=== PATIENT | female | born 1950 | race Caucasian/White ===

== ENCOUNTER 2020-03-08 07:55 | Outpatient (CLI) | payer MEDICARE, SELFPAY ==
--- NOTE | 2020-03-08 08:04 | MM_ITS ---
WS: [id number] BILATERAL SCREENING DIGITAL MAMMOGRAM WITH CAD HISTORY: SCREENING COMPARISON: and 02/03/2018 Bilateral CC and MLO views submitted. Computer aided detection analyzed. Breast composition: There are scattered areas of fibroglandular density. No suspicious masses, microc alcifications or architectural distortion. Benign lymph nodes in the lateral aspect of each breast. MM/[place] [id number] IMPRESSION: BI-RADS: 2-Benign FOLLOW UP: 1 Year Follow-up
== END 2020-03-08 07:56 | disposition home or self-care (01) ==
LOC: RADSHAW 07:59
PROVIDERS: PCP Family Medicine; Visit Provider Family Medicine
DX: Z12.31 Encounter for screening mammogram for malignant neoplasm of breast (principal)
CPT/HCPCS: 77067

== ENCOUNTER 2020-05-09 08:20 | Outpatient (CLI) | payer MEDICARE, SELFPAY ==
--- NOTE | 2020-05-09 08:37 | CT_ITS ---
WS: [id number] CT CHEST TECHNIQUE: Noncontrast CT of the chest with coronal and sagittal reformatted images. CLINICAL INFORMATION: PULMONARY NODULES COMPARISON: and DLP: 865.[address] scans at [facility] use at least one of these dose optimization techniques: automat ed exposure control; mA and/or kV adjustment per patient size (includes targeted exams where dose is matched to clinical indication); or iterative reconstruction. FINDINGS: Moderate chronic emphysematous changes. Again seen are multiple noncalcified subcentimeter pulmonary nodules largest in the left lower lobe subpleural in location measuring 6.3 mm unchanged. Additional subcentimeter nodules in both lungs appears stable. Small subpleural pulmonary nodule right middle lo be measuring 3.5 mm is unchanged. Hazy groundglass nodules in the right upper lobe suprahilar in loca tion are stable. Calcified granulomas. Adrenal glands are normal. Normal GE junction. Normal visualiz ed thoracic spine. No mediastinal or hilar lymphadenopathy. No axillary lymphadenopathy. Vascular calcification. CT/CT chest wo con [id number] IMPRESSION: 1. Multiple noncalcified subcentimeter pulmonary nodules unchanged since . Recommend 12 month follow-up. 2. No mediastinal or hilar lymphadenopathy. 3. Vascular calcification including coronary.
== END 2020-05-09 08:21 | disposition home or self-care (01) ==
LOC: RADWPI 08:25
PROVIDERS: PCP Family Medicine; Visit Provider Family Medicine
DX: R91.8 Other nonspecific abnormal finding of lung field (principal); I25.10 Atherosclerotic heart disease of native coronary artery without angina pectoris
CPT/HCPCS: 71250

== ENCOUNTER 2020-06-27 08:07 | Outpatient (CLI) | payer MEDICARE, SELFPAY ==
--- NOTE | 2020-06-27 08:15 | XR_ITS ---
WS: [id number] Exam: XR KUB [id number] Date/Time of Exam: 06/27/2020 8:21 AM Reason For Exam: stones Comparison 06/28/2019. No calcifications identified superimposing the kidneys. No bowel obstruction or free air. Nonspecific pelvic calcifications are noted which may be phleboliths. Large circular calcification noted near th e left iliac crest unchanged in appearance. XR/XR KUB [id number] IMPRESSION: 1. No calcifications superimposing the renal silhouettes. 2. No acute finding in the abdomen or pelvis.
== END 2020-06-27 08:08 | disposition home or self-care (01) ==
LOC: RAD 08:13
PROVIDERS: PCP Family Medicine; Visit Provider Urology
DX: N20.1 Calculus of ureter (principal)
CPT/HCPCS: 74018; 81003

== ENCOUNTER 2020-12-25 09:42 | Outpatient (CLI) | payer MEDICARE, SELFPAY ==
--- NOTE | 2020-12-25 10:15 | CT_ITS ---
WS: [id number] CT CHEST WITHOUT INTRAVENOUS CONTRAST HISTORY: LUNG NODULE TECHNIQUE: Contiguous 5 mm axial imaging performed on the thorax. Coronal and sagittal reformats are submitted. All CT scans at [facility] use at least one of these dose optimization techniq ues: automated exposure control; mA and/or kV adjustment per patient size (includes targeted exams wh ere dose is matched to clinical indication); or iterative reconstruction. CONTRAST: None DLP: 327.63 mGy-cm. COMPARISON: 05/09/2020 and 04/22/2019 Lungs and central airway: Mild chronic emphysematous changes. Multiple bilateral subcentimeter pulmon henry nodules are again identified. The largest nodule measuring 6 mm at the LEFT lung base. There are additional nodules which are less than 6 mm scattered throughout the lungs. There are no new or enlar ging nodules. Benign granuloma also noted. Mild groundglass attenuation in the periphery LEFT lower l obe. Probably due to pneumonitis. Pleura: Normal. No pleural effusion. Heart and pericardium: Mild enlargement the heart. No pericardial effusion. Mediastinum and mehdi: Benign calcified lymph nodes at the hilum. Vessels: Mild atherosclerosis aorta and ectasia. No aneurysm. Pulmonary artery size is very minimally prominent. Chest wall and lower neck: No soft tissue masses. Upper abdomen: Suprarenal abdominal aortic calcification. No adrenal mass. Osseous structures: No destructive process. CT/CT chest wo con [id number] IMPRESSION: 1. Subcentimeter bilateral pulmonary nodules have been stable for 2 years. No additional workup is necessary of these nodules. 2. Prior granulomatous disease. 3. Atherosclerosis aorta.
== END 2020-12-25 09:43 | disposition home or self-care (01) ==
LOC: RADWPI 09:45
PROVIDERS: PCP Nurse Practitioner; Visit Provider Family Medicine
DX: R91.1 Solitary pulmonary nodule (principal); I70.0 Atherosclerosis of aorta; R91.8 Other nonspecific abnormal finding of lung field
CPT/HCPCS: 71250

== ENCOUNTER 2021-03-13 14:45 | Outpatient (CLI) | payer MEDICARE, SELFPAY ==
--- NOTE | 2021-03-13 14:55 | MM_ITS ---
WS: [id number] BILATERAL SCREENING DIGITAL MAMMOGRAM WITH CAD HISTORY: SCREENING COMPARISON: 02/28/2016 and 03/08/2020 Bilateral CC and MLO views submitted. Computer aided detection analyzed. Breast composition: There are scattered areas of fibroglandular density. No suspicious masses, microc alcifications or architectural distortion. Stable LEFT breast nodule and bilateral calcifications. MM/[place] [id number] IMPRESSION: BI-RADS: 2-Benign FOLLOW UP: 1 Year Follow-up
--- NOTE | 2021-03-13 15:48 | XR_ITS ---
WS: [id number] Bone mineral density performed on a [place], today Clinical data: POST MENOPAUSAL Comparison study: DEXA scan, 11/26/2016. Findings: The first 4 lumbar vertebral bodies demonstrated the bone mineral density of 1.134 g/cm2 for a young adult T score of -0.4. Measurement of the left hip reveals a bone mineral density of 0.854 g/cm2 with a young adult T score of -1.2. Measurement of the right hip reveals the bone mineral density of 0.860 g/cm2 for young adult T score of -1.2. XR/XR DEXA axial skeleton* [id number] Impression: 1. The bone mineral density of the lumbar spine is normal. 2. The bone mineral density of the hips shows osteopenia. 3. The bone mineral density of the lumbar spine and right hip have diminished c ompared to the prior study. 4. The bone mineral density of the left hip has increased slightly compared to the prior study.
== END 2021-03-13 14:46 | disposition home or self-care (01) ==
LOC: RADSHAW 14:52
PROVIDERS: PCP Nurse Practitioner; Visit Provider Family Medicine
DX: Z12.31 Encounter for screening mammogram for malignant neoplasm of breast (principal); Z78.0 Asymptomatic menopausal state
CPT/HCPCS: 77067; 77080

== ENCOUNTER 2021-09-03 12:43 | Outpatient (CLI) | payer MEDICARE, SELFPAY ==
--- NOTE | 2021-09-03 12:54 | XR_ITS ---
WS: [id number] KUB, AP view, 09/03/2021 Clinical Data: UROLITHIASIS Comparison: KUB, 06/27/2020. Findings: No abnormal intraabdominal masses or calcifications are seen. There is no dilatated small bowel or ev idence of obstruction. XR/XR KUB [id number] Impression: Negative KUB.
== END 2021-09-03 12:44 | disposition home or self-care (01) ==
LOC: RAD 12:51
PROVIDERS: PCP Nurse Practitioner; Visit Provider Urology
DX: N20.9 Urinary calculus, unspecified (principal)
CPT/HCPCS: 74018; 81003

== ENCOUNTER → 2021-12-26 13:50 | Outpatient (BNVA) | payer MEDICARE, SELFPAY | PROVIDERS: PCP Physician Assistant; Referring Provider Nurse Practitioner; Visit Provider Specialist | DX: M17.11 Unilateral primary osteoarthritis, right knee (principal) | CPT/HCPCS: 20610; 73560; 73565; 99203; J1100; J2795; J3301 ==

== ENCOUNTER 2022-03-15 09:27 | Outpatient (CLI) | payer MEDICARE, SELFPAY ==
--- NOTE | 2022-03-15 09:39 | MM_ITS ---
WS: [id number] BILATERAL SCREENING DIGITAL BREAST TOMOSYNTHESIS MAMMOGRAM WITH CAD HISTORY: SCREENING COMPARISON: 03/13/2021, 03/08/2020 Bilateral CC and MLO views with tomosynthesis and synthetic mammography submitted. Computer aided det ection analyzed. Breast composition: There are scattered areas of fibroglandular density. No suspicious masses, microc alcifications or architectural distortion. Stable upper outer quadrant masses which are probably intr amammary lymph nodes. Vascular calcifications in each breast. MM/[place] [id number] IMPRESSION: BI-RADS: 2-Benign FOLLOW UP: 1 Year Follow-up
== END 2022-03-15 09:28 | disposition home or self-care (01) ==
LOC: RAD 09:28
PROVIDERS: PCP Physician Assistant; Visit Provider Physician Assistant
DX: Z12.31 Encounter for screening mammogram for malignant neoplasm of breast (principal)
CPT/HCPCS: 77063; 77067

== ENCOUNTER → 2022-12-16 09:08 | Outpatient (BNVA) | payer MEDICARE, SELFPAY | PROVIDERS: PCP Physician Assistant; Referring Provider Dermatology; Visit Provider Specialist | DX: M70.61 Trochanteric bursitis, right hip (principal); M76.01 Gluteal tendinitis, right hip | CPT/HCPCS: 20610; 73502; 99213; J1100; J2795; J3301 ==

== ENCOUNTER → 2023-02-27 13:40 | Outpatient (BNVA) | payer MEDICARE, SELFPAY | PROVIDERS: PCP Physician Assistant; Visit Provider Nurse Practitioner Family | DX: L57.0 Actinic keratosis (principal); L57.8 Other skin changes due to chronic exposure to nonionizing radiation; L71.8 Other rosacea; L81.4 Other melanin hyperpigmentation; D22.5 Melanocytic nevi of trunk; L85.3 Xerosis cutis | CPT/HCPCS: 17000; 17003; 99214 ==

== ENCOUNTER 2023-03-27 07:53 | Outpatient (CLI) | payer MEDICARE, SELFPAY ==
--- NOTE | 2023-03-27 08:10 | MM_ITS ---
WS: [id number] BILATERAL SCREENING DIGITAL TOMOSYNTHESIS MAMMOGRAM WITH CAD HISTORY: SCREENING COMPARISON: 03/15/2022, 03/13/2021, 03/08/2020 Bilateral CC and MLO views with tomosynthesis and synthetic mammography submitted. Computer aided det ection analyzed. Breast composition: There are scattered areas of fibroglandular density. No suspicious masses, microc alcifications or architectural distortion. Benign calcifications in each breast. Long-term stability 5 mm mass in the upper outer quadrant left breast. IMPRESSION: MM/[place] [id number] BI-RADS: 2-Benign FOLLOW UP: 1 Year Follow-up
== END 2023-03-27 07:54 | disposition home or self-care (01) ==
LOC: RAD 07:57
PROVIDERS: PCP Physician Assistant; Visit Provider Physician Assistant
DX: Z12.31 Encounter for screening mammogram for malignant neoplasm of breast (principal)
CPT/HCPCS: 77063; 77067

== ENCOUNTER → 2023-09-29 10:34 | Outpatient (BNVA) | payer MEDICARE, SELFPAY | PROVIDERS: PCP Physician Assistant; Visit Provider Specialist | DX: M17.11 Unilateral primary osteoarthritis, right knee (principal); Z71.89 Other specified counseling | CPT/HCPCS: 20610; 73560; 73565; 99213; J1100; J2795; J3301 ==

== ENCOUNTER → 2023-12-01 15:04 | Outpatient (BNVA) | payer MEDICARE, SELFPAY | PROVIDERS: PCP Physician Assistant; Visit Provider Nurse Practitioner Family | DX: L82.0 Inflamed seborrheic keratosis (principal); L91.8 Other hypertrophic disorders of the skin; D48.5 Neoplasm of uncertain behavior of skin; L71.8 Other rosacea | CPT/HCPCS: 11102; 11200; 17110; 99214 ==

== ENCOUNTER → 2024-01-26 10:01 | Outpatient (BNVA) | payer MEDICARE, SELFPAY | PROVIDERS: PCP Physician Assistant; Visit Provider Specialist | DX: M19.011 Primary osteoarthritis, right shoulder | CPT/HCPCS: 20610; 73030; 99214; J1100; J2795; J3301 ==

== ENCOUNTER → 2024-02-25 08:32 | Outpatient (BNVA) | payer MEDICARE, SELFPAY | PROVIDERS: PCP Physician Assistant; Visit Provider Nurse Practitioner Family | DX: L82.1 Other seborrheic keratosis (principal); I78.8 Other diseases of capillaries; L57.8 Other skin changes due to chronic exposure to nonionizing radiation; L81.4 Other melanin hyperpigmentation; D22.5 Melanocytic nevi of trunk | CPT/HCPCS: 99213 ==

== ENCOUNTER 2024-04-08 09:51 | Outpatient (CLI) | payer MEDICARE, SELFPAY ==
--- NOTE | 2024-04-08 | MM_ITS ---
WS: [id number] BILATERAL SCREENING DIGITAL TOMOSYNTHESIS MAMMOGRAM WITH CAD HISTORY: SCREENING COMPARISON: 03/27/2023, 03/15/2022, 03/08/2020 Bilateral CC and MLO views with tomosynthesis and synthetic mammography submitted. Computer aided det ection analyzed. Breast composition: There are scattered areas of fibroglandular density. No suspicious masses, microc alcifications or architectural distortion. There are a few scattered vascular and round punctate calc ifications within each breast. Bilateral stable nodules are probably lymph nodes. MM/[place] [id number] IMPRESSION: BI-RADS: 2-Benign FOLLOW UP: 1 Year Follow-up
== END 2024-04-08 09:52 | disposition home or self-care (01) ==
LOC: RAD 09:52
PROVIDERS: PCP Physician Assistant; Visit Provider Physician Assistant
DX: Z12.31 Encounter for screening mammogram for malignant neoplasm of breast (principal); R92.323 Mammographic fibroglandular density, bilateral breasts; R92.1 Mammographic calcification found on diagnostic imaging of breast
CPT/HCPCS: 77063; 77067

== ENCOUNTER → 2024-06-18 07:48 | Outpatient (BNVA) | payer MEDICARE, SELFPAY | PROVIDERS: PCP Physician Assistant; Visit Provider Specialist | DX: M17.11 Unilateral primary osteoarthritis, right knee (principal); Z71.89 Other specified counseling; R03.0 Elevated blood-pressure reading, without diagnosis of hypertension | CPT/HCPCS: 20610; J1100; J2795; J3301 ==

== ENCOUNTER → 2024-10-04 11:26 | Outpatient (BNVA) | payer MEDICARE, SELFPAY | PROVIDERS: PCP Physician Assistant; Visit Provider Nurse Practitioner Family | DX: L71.8 Other rosacea (principal); D22.39 Melanocytic nevi of other parts of face; I78.8 Other diseases of capillaries; L57.8 Other skin changes due to chronic exposure to nonionizing radiation | CPT/HCPCS: 99214 ==

== ENCOUNTER 2024-11-18 12:46 | Emergency (ER) | payer MEDICARE, SELFPAY ==
[2024-11-18 12:47] VITALS: BP 168/85; PULSE 66; RESP 17; TEMP 37.1; O2SAT 98; BMI 27.4
--- NOTE | 2024-11-18 12:52 | ECG_ITS ---
[employer] Test Date: 2024-11-18 Pat Name: Erica Costa Department: Room: Gender: Female Academic Dean: : 1950 Requested By: Eric Herrera Order Number: [id number] Reading MD: Minnie York M.D. Measurements Intervals [place] Rate: 72 P: 55 DC: 175 QRS: -51 QRSD: 107 T: 6 QT: 415 QTc: 456 Interpretive Statements SINUS RHYTHM LEFT AXIS DEVIATION [QRS AXIS < -30] LOW QRS VOLTAGE IN PRECORDIAL LEADS [QRS DEFLECTION < 1.0 mV IN CHEST LEADS] POSSIBLE ANTERIOR MYOCARDIAL INFARCTION , OF INDETERMINATE AGE [30 ms Q WAVE IN V3/V4, OR R < 0.2 mV IN V4] MODERATE T-WAVE ABNORMALITY, CONSIDER LATERAL ISCHEMIA [-0.1+ mV T-WAVE IN I/aVL/V5/V6] No previous ECG available for comparison Electronically Signed On 11-20-2024 13:10:57 CDT by Minnie York M.D. [email or web address]
--- NOTE | 2024-11-18 12:59 | XR_ITS ---
WS: [id number] Exam: XR chest 1V portable [id number] Date/Time of Exam: 11/18/2024 12:59 PM Reason For Exam: Chest pain No priors. Lungs are fully inflated and clear. Unremarkable cardiomediastinal silhouette. No pleural effusions. Unremarkable bony structures. XR/XR chest 1V portable [id number] IMPRESSION: 1. Negative chest.
[2024-11-18] MEDS: aspirin 81 mg Chew Tablet 324 MG PO (13:12)
--- NOTE | 2024-11-18 13:15 | W.ED.CHESTPA ---
HPI - Chest Pain General: Chief Complaint: Chest Pain Stated Complaint: CP Time Seen by Provider: 11/18/24 12:58 History of Present Illness: 74-year-old female presents emergency room complaint of left-sided chest pain radiating to her left shoulder began last night while she was at rest. She had been drinking some wine. Got significant enough that she ended up going to bed seem to wax and wane a little bit this morning and is still bothering her no associated shortness of breath. No history of coronary disease no other recent episodes. Patient does not smoke is not diabetic does have a history of hyperlipidemia. No previous cardiac testing. Nothing exacerbates or relieves symptoms. Associated symptoms: Deny abdominal pain, dyspnea or fever(s) Related Data Home Medications ?Medication ?Instructions ?Recorded ?Confirmed aspirin 81 mg tablet,delayed 81 mg PO DAILY 06/13/20 11/18/24 release (Adult Aspirin Regimen) atorvastatin 40 mg tablet 40 mg PO QAM 06/13/20 11/18/24 cranberry extract 200 mg capsule 200 mg PO QPM 06/13/20 11/18/24 ibuprofen 200 mg capsule 200 mg PO Q6H PRN Pain 06/13/20 11/18/24 turmeric 400 mg capsule 400 mg PO BEDTIME 06/13/20 11/18/24 multivitamin 1 tab PO QPM 06/27/20 11/18/24 multivitamin with minerals 1 tab PO QPM 06/27/20 11/18/24 (Hair,Skin and Nails tablet) ascorbate calcium (vitamin C) 500 1 g PO QAM 09/03/21 11/18/24 mg tablet cetirizine 10 mg tablet (Zyrtec) 10 mg PO DAILY PRN allergies 06/18/24 11/18/24 epinephrine 0.3 mg/0.3 mL See Rx Instructions .Route .COMPLEX 11/18/24 11/18/24 injection, auto-injector escitalopram oxalate 5 mg tablet 5 mg PO QAM 11/18/24 11/18/24 ropinirole 2 mg tablet 2 mg PO BEDTIME 11/18/24 11/18/24 tizanidine 2 mg tablet 2 mg PO BID PRN back spasms 11/18/24 11/18/24 trazodone 300 mg tablet 300 mg PO BEDTIME 11/18/24 11/18/24 Previous Rx's ?Medication ?Instructions ?Recorded pantoprazole 40 mg tablet,delayed 40 mg PO DAILY #30 tabs 11/18/24 release Allergies Allergy/AdvReac Type Severity Reaction Status Date / Time No Known Allergies Allergy Verified 06/18/24 08:16 Review of Systems Const: Denies: fever(s) or chills Card: Reports: chest pain Resp: Denies: dyspnea GI: Denies: abdominal pain : Denies: dysuria, urinary frequency or urinary urgency Musc: Denies: neck pain or back pain Skin/Breast: Denies: rash PFSH ED PFSH: Medical History Dysuria Anxiety and depression Gross hematuria Urolithiasis Right distal ureteral calculus Recurrent UTI Hyperlipidemia Surgical History Status post bilateral foot surgery Status post placement of ureteral stent Status post laser lithotripsy of ureteral calculus Family History Father , AT AGE 45 LUNG CANCER No problems noted. Mother , AT AGE 88-LYMPHOMA No problems noted. Social History Smoking and tobacco/nicotine status: never used tobacco/nicotine Alcohol intake: current Alcohol intake frequency: 0-2 Drinks per Day Marital status: / Current occupational status: retired Physical Exam Const: COMMON NORMALS: no acute distress GENERAL APPEARANCE: cooperative ORIENTATION/CONSCIOUSNESS: Yes awake, Yes oriented to person, Yes oriented to place and Yes oriented to time HENMT: COMMON NORMALS: normocephalic and hearing grossly normal bilaterally HEAD & SCALP: normocephalic Resp: COMMON NORMALS: normal respiratory effort, No retractions, No use of accessory muscles and clear to auscultation bilaterally AUSCULTATION: clear to auscultation bilaterally Cardio: COMMON NORMALS: regular rate, regular rhythm and No murmurs present (Cardio) RATE: regular rate RHYTHM: regular rhythm GI: COMMON NORMALS: Soft to palpation and No hepatosplenomegaly present AUSCULTATION: Yes normoactive bowel sounds PALPATION: Yes Soft to palpation, No Tenderness to palpation present (GI), No Guarding due to palpation present (GI) and Yes No hepatosplenomegaly present Extremity: COMMON NORMALS: normal to inspection, capillary refill normal, no clubbing, cyanosis or edema, no calf tenderness and no pedal edema Neuro: SENSORIUM/ORIENTATION: Yes oriented to person, Yes oriented to place and Yes oriented to time Skin: COMMON NORMALS: no rashes or lesions noted GENERAL SKIN EXAM: no rashes or lesions noted Procedures Laceration Laceration 1: Size (cm): 2.5 Number of sutures: 2 Course Vital Signs: Vital signs: Vital Signs Temperature 98.7 F 11/18/24 12:47 Pulse Rate 67 11/18/24 16:38 Respiratory Rate 17 11/18/24 12:47 Blood Pressure 109/90 11/18/24 16:38 Pulse Oximetry 100 11/18/24 16:38 Oxygen Delivery Me thod Room Air 11/18/24 12:47 MDM - Chest Pain Medical Decision Making Cardiac enzymes and EKG did not show any acute changes symptoms not suggestive of acute coronary syndrome she not having any chest comfort now. Liver enzymes are mildly elevated gallbladder ultrasound was negative for acute cholecystitis or cholelithiasis. Will discharge patient home continue take baby aspirin daily. Blood pressure slightly elevated and she first arrived but then normalized. Will set her up for an outpatient Lexiscan sestamibi stress test start pantoprazole 40 mg daily. Medical Records I reviewed the patient's medical records. Lab Data I reviewed the patient's lab results. 11/18/24 13:12 11/18/24 13:12 Radiology Impressions Chest X-Ray 11/18/24 12:59 IMPRESSION: 1. Negative chest. Laboratory Results WBC 5.98 10^3/uL (3.29-11.43) 11/18/24 13:12 RBC 4.52 10^6/uL (3.85-5.65) 11/18/24 13:12 Hgb 14.20 g/dL (11.27-16.99) 11/18/24 13:12 Hct 43.0 % (36-47) 11/18/24 13:12 MCV 95.1 fl (85-98) 11/18/24 13:12 MCH 31.4 pg (27-33) 11/18/24 13:12 MCHC 33.0 g/dL (30-55) 11/18/24 13:12 RDW 13.2 % (12.1-15.1) 11/18/24 13:12 Plt Count 331 10^3/cmm (157-399) 11/18/24 13:12 MPV 9.3 fL (7.4-10.4) 11/18/24 13:12 Neut % (Auto) 67.6 % 11/18/24 13:12 Lymph % (Auto) 22.1 % 11/18/24 13:12 Coal % (Auto) 8.7 % 11/18/24 13:12 Eos % (Auto) 1.2 % 11/18/24 13:12 Baso % (Auto) 0.2 % 11/18/24 13:12 Neut # (Auto) 4.05 10^3/uL (1.8-7.7) 11/18/24 13:12 Lymph # (Auto) 1.3 10^3/uL (0.8-4.8) 11/18/24 13:12 Coal # (Auto) 0.5 10^3/uL (0.2-0.9) 11/18/24 13:12 Eos # (Auto) 0.1 10^3/uL (0.0-0.8) 11/18/24 13:12 Baso # (Auto) 0.0 10^3/uL (0.0-0.1) 11/18/24 13:12 Nucleated RBC % (auto) 0 % 11/18/24 13:12 Nucleated RBCs # 0.0 /100WBC 11/18/24 13:12 Sodium 142 mmol/L (136-145) 11/18/24 13:12 Potassium 3.9 mmol/L (3.5-5.1) 11/18/24 13:12 Chloride 105 mmol/L (98-107) 11/18/24 13:12 Carbon Dioxide 25 mmol/L (22-29) 11/18/24 13:12 Anion Gap 15.9 (5-19) 11/18/24 13:12 BUN 10 mg/dL (8-23) 11/18/24 13:12 Creatinine 0.6 mg/dL (0.5-0.9) 11/18/24 13:12 GFR Calculation Not Reportable 11/18/24 13:12 Glucose 107 mg/dL (65-115) 11/18/24 13:12 Calculated Osmolality 294 mOsm/kg (285-295) 11/18/24 13:12 Calcium 9.2 mg/dL (8.5-10.5) 11/18/24 13:12 Total Bilirubin 0.3 mg/dL (0.15-1.2) 11/18/24 13:12 AST 38 U/L (0-32) H 11/18/24 13:12 ALT 43 U/L (0-33) H 11/18/24 13:12 Alkaline Phosphatase 95 U/L (35-105) 11/18/24 13:12 Troponin T Baseline 19 ng/L (0-10) H 11/18/24 13:12 Troponin T 120 Minute 17.42 ng/L (0-10) H 11/18/24 14:56 Delta Troponin T -1.58 ABS# (0-10) L 11/18/24 14:56 Total Protein 6.3 g/dL (6.6-8.7) L 11/18/24 13:12 Albumin 4.3 g/dL (3.5-5.2) 11/18/24 13:12 Globulin 2.0 g/dL (1.3-4.6) 11/18/24 13:12 All radiology interpretation(s) finalized by discharge Discharge Plan Discharge Patient Disposition: Home Clinical Impression: Atypical chest pain, Elevated transaminase level Condition: Stable Prescriptions: New pantoprazole 40 mg tablet,delayed release (DR/EC) 40 mg PO DAILY Qty: 30 0RF No Action multivitamin Tablet 1 tab PO QPM multivitamin with minerals [Hair,Skin and Nails] Tablet 1 tab PO QPM turmeric 400 mg capsule 400 mg PO BEDTIME cranberry extract 200 mg capsule 200 mg PO QPM Rx Instructions: administer with a meal atorvastatin 40 mg tablet 40 mg PO QAM aspirin [Adult Aspirin Regimen] 81 mg tablet,delayed release (DR/EC) 81 mg PO DAILY ibuprofen 200 mg capsule 200 mg PO Q6H PRN (Reason: Pain) ascorbate calcium (vitamin C) 500 mg tablet 1 g PO QAM cetirizine [Zyrtec] 10 mg tablet 10 mg PO DAILY PRN (Reason: allergies) tizanidine 2 mg tablet 2 mg PO BID PRN (Reason: back spasms) ropinirole 2 mg tablet 2 mg PO BEDTIME trazodone 300 mg tablet 300 mg PO BEDTIME epinephrine 0.3 mg/0.3 mL auto-injector See Rx Instructions .ROUTE .COMPLEX Rx Instructions: INJECT 1 PEN IN THE MUSCLE ONE TIME DIRECTED. escitalopram oxalate 5 mg tablet 5 mg PO QAM Discharge Orders: Discharge ED (Routine); Ordered 11/18/24 Ordered By: Eric Medrano Referrals: Gillian Luong PA [Primary Care Provider] - Discharge Diet: Usual diet Discharge Activity: Increase activity as tolerated Patient Instructions: Opioid Safety, Pain Management Activity Restrictions/Additional Instructions: Thank you for choosing [facility] for your healthcare needs today. It is very important that you follow up as instructed or that you return to the Emergency Department should you have concerns or if your condition changes or worsens in any way. You were seen emergency room with complaint of chest discomfort your cardiac enzymes and EKG did not show any acute changes. Recommend you start pantoprazole 40 mg once daily. Continue taking aspirin 81 mg daily. Case management will make arrangements for you to have a outpatient stress test. Print Language: Tamazight Coding Level of Care Code ED Guard Driver for Zahra Hoover
[2024-11-18 13:16] LABS: Basophils % 0.2 %; Eosinophils # 0.1 10^3/uL (0.0-0.8); Eosinophils % 1.2 %; Lymphocytes # 1.3 10^3/uL (0.8-4.8); Lymphocytes % 22.1 %; Mean Corpuscular Hemoglobin 31.4 pg (27-33); Mean Corpuscular Volume 95.1 fl (85-98); Mean Platelet Volume 9.3 fL (7.4-10.4); Monocytes # 0.5 10^3/uL (0.2-0.9); Monocytes % 8.7 %; Neutrophils # 4.05 10^3/uL (1.8-7.7); Neutrophils % 67.6 %; Nucleated Red Blood Cells % 0 %; Platelet Count 331 10^3/cmm (157-399); Red Blood Count 4.52 10^6/uL (3.85-5.65); Red Cell Distribution Width 13.2 % (12.1-15.1); White Blood Count 5.98 10^3/uL (3.29-11.43)
[2024-11-18 13:33] LABS: Troponin(5th) Baseline 19 ng/L (0-10)
[2024-11-18 13:45] LABS: Alanine Aminotransferase 43 U/L (0-33); Albumin Level 4.3 g/dL (3.5-5.2); Alkaline Phosphatase 95 U/L (35-105); Anion Gap 15.9 (5-19); Aspartate Amino Transferase 38 U/L (0-32); Blood Urea Nitrogen 10 mg/dL (8-23); Calcium 9.2 mg/dL (8.5-10.5); Carbon Dioxide 25 mmol/L (22-29); Chloride 105 mmol/L (98-107); Creatinine Clr Calc Pharmacy 65.6748; Glucose 107 mg/dL (65-115); Osmolality Calculated 294 mOsm/kg (285-295); Potassium 3.9 mmol/L (3.5-5.1); Sodium 142 mmol/L (136-145); Total Bilirubin 0.3 mg/dL (0.15-1.2); Total Protein 6.3 g/dL (6.6-8.7)
--- NOTE | 2024-11-18 15:00 | ECG_ITS ---
[employer] Test Date: 2024-11-18 Pat Name: Erica Costa Department: Room: Gender: Female Bundle Cutter: : 1950 Requested By: Eric Herrera Order Number: [id number] Reading MD: Minnie York M.D. Measurements Intervals [place] Rate: 60 P: 52 UT: 173 QRS: 16 QRSD: 104 T: 64 QT: 447 QTc: 447 Interpretive Statements SINUS RHYTHM INDETERMINATE AXIS LOW QRS VOLTAGE IN PRECORDIAL LEADS [QRS DEFLECTION < 1.0 mV IN CHEST LEADS] POSSIBLE ANTERIOR MYOCARDIAL INFARCTION , OF INDETERMINATE AGE [30 ms Q WAVE IN V3/V4, OR R < 0.2 mV IN V4] MODERATE T-WAVE ABNORMALITY, CONSIDER LATERAL ISCHEMIA [-0.1+ mV T-WAVE IN I/aVL/V5/V6] Compared to ECG 11/18/2024 12:52:42 Indeterminate axis now present Left-axis deviation no longer present Possible ischemia still present Electronically Signed On 11-20-2024 13:27:57 CDT by Minnie York M.D. [email or web address]
[2024-11-18 15:02] VITALS: PULSE 70; O2SAT 97
[2024-11-18 15:25] LABS: Troponin 5 2HR 17.42 ng/L (0-10)
[2024-11-18 15:27] LABS: Troponin 5 2HR Delta -1.58 ABS# (0-10)
--- NOTE | 2024-11-18 15:39 | US_ITS ---
WS: [email or web address] RIGHT UPPER QUADRANT ULTRASOUND HISTORY: Elevated liver enzymes COMPARISON: None available. Liver: 14.3 cm in length. Normal size liver and echogenicity. No bile duct dilatation or mass. Portal Vein: Normal hepatopetal flow with monophasic waveform. Gallbladder: Normally distended gallbladder with no stones or wall thickening. CBD: 0.6 cm Pancreas: Normal size and echogenicity. Right kidney: 11.2 cm in length. Normal size and echogenicity. No hydronephrosis or mass. Aorta and IVC: Unremarkable abdominal aorta and IVC. No ascites. US/US gall bladder [id number] IMPRESSION: Normal right upper quadrant ultrasound.
[2024-11-18 16:35] VITALS: BP 109/90; PULSE 66; O2SAT 100
[2024-11-18 16:38] VITALS: BP 109/90; PULSE 67; O2SAT 100
--- NOTE | 2024-11-22 18:43 | DCPLANNER ---
faxed outpatient lexiscan order to scheduling for er f/u
== END 2024-11-18 16:39 | disposition home or self-care (01) ==
PROVIDERS: Emergency Provider Family Medicine; PCP Physician Assistant
DX: R07.89 Other chest pain (principal); R74.01 Elevation of levels of liver transaminase levels; E78.5 Hyperlipidemia, unspecified
CPT/HCPCS: 36415; 71045; 76705; 80053; 84484; 85025; 93005; 99285; J9999

== ENCOUNTER → 2025-02-28 10:26 | Outpatient (BNVA) | payer MEDICARE, SELFPAY | PROVIDERS: PCP Physician Assistant; Visit Provider Nurse Practitioner Family | DX: L71.8 Other rosacea (principal); L57.8 Other skin changes due to chronic exposure to nonionizing radiation; L81.4 Other melanin hyperpigmentation; L82.0 Inflamed seborrheic keratosis; L29.89 Other pruritus; Z78.9 Other specified health status; R58 Hemorrhage, not elsewhere classified; R20.8 Other disturbances of skin sensation | CPT/HCPCS: 17110; 99213 ==

== ENCOUNTER 2025-04-19 11:20 | Outpatient (CLI) | payer MEDICARE, SELFPAY ==
--- NOTE | 2025-04-19 11:28 | MM_ITS ---
WS: [id number] BILATERAL 3D TOMOSYNTHESIS DIGITAL SCREENING MAMMOGRAPHY WITH CAD CLINICAL INFORMATION: SCREENING HISTORY: Screening mammogram. No current complaints. COMPARISON: 2023 TECHNIQUE: Bilateral CC and MLO views. FINDINGS: Scattered fibroglandular densities bilaterally. No suspicious focal mass, asymmetry, calcifications, or architectural distortion. No evidence of malignancy. Vascular calcification MM/MM scr BI tomosynthesis [id number] IMPRESSION: DENSITY: There are scattered areas of fibroglandular density. BI-RADS: 2 - Benign. FOLLOW UP: 1 Year Follow-up Recommend return to annual screening mammography.
== END 2025-04-19 11:21 | disposition home or self-care (01) ==
LOC: RAD 11:23
PROVIDERS: PCP Physician Assistant; Visit Provider Physician Assistant
DX: Z12.31 Encounter for screening mammogram for malignant neoplasm of breast (principal); R92.323 Mammographic fibroglandular density, bilateral breasts; R92.1 Mammographic calcification found on diagnostic imaging of breast
CPT/HCPCS: 77063; 77067